=== PATIENT | female | born 1980 | race Caucasian/White ===

== ENCOUNTER 2017-02-25 17:20 | Emergency (ER) | payer MEDICAID, OTHER ==
[~2017-02-25] VITALS: Ht 165.1 cm; Wt 108.8 kg
[~2017-02-25 17:20] MED LIST: PROM25SU8 PO; RANI150 PO
[2017-02-25 17:23] VITALS: BP 126/72; PULSE 88; RESP 14; TEMP 98.5; O2SAT 98
[2017-02-25] MEDS ORDERED: SODIUM CHLOR 0.9% 1000 ML INJ 1,000 ML IV SCH (17:54)
--- NOTE | 2017-02-25 17:59 | PD ---
HPI Chief Complaint: Abdominal Pain Time Seen by Provider: 17:33 Travel History International Travel<30 days: No Contact w/Intl Traveler<30days: No Traveled to known affect area: No History of Present Illness HPI 37-year-old female here for evaluation of headache and abdominal pain. Patient reports having had a headache for the last 3 days which she describes as bandlike around her forehead, constant, no modifying factors. She has had similar headaches in the past. Today she has had right upper and right lower abdominal pain as well as right flank pain. Pain described as sharp, moderate, constant, worse with movement and palpation. The patient is felt nauseous but has not vomited. No diarrhea. She is currently on her menstrual period. History of section, umbilical hernia repair, and bilateral tubal ligation. No other abdominal surgeries. No fevers. PFSH Past Medical History Medical History: Denies Significant Hx Tetanus Vaccination: > 5 Years Influenza Vaccination: No ?: Not LMP: 02/23/17 : 4 Para: 2 Miscarriage: 2 Tubal Ligation: Yes Past Surgical History Abdominal Surgery: Yes (HERNIA) Social History Alcohol Use: Yes (Socially) Tobacco Use: No Substance Use: No Allergies-Medications (Allergen,Severity, Reaction): Coded Allergies: Aspirin (Verified Allergy, Severe, Rash, 02/25/17) Reported Meds & Prescriptions Reported Meds & Active Scripts Active No Active Prescriptions or Reported Medications Review of Systems Except as stated in HPI: all other systems reviewed are Neg Physical Exam Narrative GENERAL: Well-developed, well-nourished, comfortable, no acute distress. SKIN: Focused skin assessment warm/dry. No rash. HEAD: Atraumatic. Normocephalic. EYES: Pupils equal and round. No scleral icterus. No injection or drainage. ENT: Mucous membranes pink and moist. NECK: Trachea midline. No JVD. No nuchal rigidity. CARDIOVASCULAR: Regular rate and rhythm. RESPIRATORY: No accessory muscle use. Clear to auscultation. Breath sounds equal bilaterally. GASTROINTESTINAL: Abdomen soft, nondistended. Mild right upper and right lower quadrant tenderness without peritoneal signs. Rest of abdomen is soft and nontender. Normal bowel sounds. MUSCULOSKELETAL: No obvious deformities. No clubbing. No cyanosis. No edema. Moderate CVA tenderness. No left CVA tenderness. NEUROLOGICAL: Awake and alert. No obvious cranial nerve deficits. Motor grossly within normal limits. Normal speech. PSYCHIATRIC: Appropriate mood and affect; insight and judgment normal. Data Data Last Documented VS Vital Signs Date Time Temp Pulse Resp B/P Pulse Ox O2 Delivery O2 Flow Rate FiO2 02/25/17 19:01 97 113/49 100 Room Air 02/25/17 17:23 98.5 14 Orders Beta Hcg (Quant/Titer) (02/25/17 17:54) Complete Blood Count With Diff (02/25/17 17:54) Comprehensive Metabolic Panel (02/25/17 17:54) Lipase (02/25/17 17:54) Prothrombin Time / Inr (Pt) (02/25/17 17:54) Act Partial Throm Time (Ptt) (02/25/17 17:54) Urinalysis - C+S If Indicated (02/25/17 17:54) Ct Abd/Pel W Iv Contrast(Rout) (02/25/17 17:54) Iv Access Insert/Monitor (02/25/17 17:54) Ecg Monitoring (02/25/17 17:54) Oximetry (02/25/17 17:54) Sodium Chlor 0.9% 1000 Ml Inj (Ns 1000 M (02/25/17 17:54) Sodium Chloride 0.9% Flush (Ns Flush) (02/25/17 18:00) Ct Brain W/O Iv Contrast(Rout) (02/25/17 ) Metoclopramide Inj (Reglan Inj) (02/25/17 18:00) Ketorolac Inj (Toradol Inj) (02/25/17 18:00) Iohexol 350 Inj (Omnipaque 350 Inj) (02/25/17 19:02) Labs Laboratory Tests Test 02/25/17 02/25/17 18:00 18:10 Urine Color YELLOW Urine Turbidity CLEAR Urine pH 6.0 Urine Specific [place] 1.031 Urine Protein NEG mg/dL Urine Glucose (UA) NEG mg/dL Urine Ketones TRACE mg/dL Urine Occult Blood TRACE Urine Nitrite NEG Urine Bilirubin NEG Urine Leukocyte Esterase NEG Urine RBC 0-3 /hpf Urine WBC 0-2 /hpf Urine Squamous Epithelial 0-5 /hpf Cells Urine Mucus FEW /lpf Microscopic Urinalysis Comment CULT NOT INDICATED White Blood Count 9.8 TH/MM3 Red Blood Count 4.45 MIL/MM3 Hemoglobin 12.6 GM/DL Hematocrit 37.1 % Mean Corpuscular Volume 83.5 FL Mean Corpuscular Hemoglobin 28.3 PG Mean Corpuscular Hemoglobin 33.9 % Concent Red Cell Distribution Width 13.5 % Platelet Count 287 TH/MM3 Mean Platelet Volume 8.4 FL Neutrophils (%) (Auto) 65.9 % Lymphocytes (%) (Auto) 24.5 % Monocytes (%) (Auto) 5.5 % Eosinophils (%) (Auto) 1.7 % Basophils (%) (Auto) 2.4 % Neutrophils # (Auto) 6.5 TH/MM3 Lymphocytes # (Auto) 2.4 TH/MM3 Monocytes # (Auto) 0.5 TH/MM3 Eosinophils # (Auto) 0.2 TH/MM3 Basophils # (Auto) 0.2 TH/MM3 CBC Comment DIFF FINAL Differential Comment Prothrombin Time 10.0 SEC Prothromb Time International 0.9 RATIO Ratio Activated Partial 27.6 SEC Thromboplast Time Sodium Level 141 MEQ/L Potassium Level 3.6 MEQ/L Chloride Level 106 MEQ/L Carbon Dioxide Level 26.3 MEQ/L Anion Gap 9 MEQ/L Blood Urea Nitrogen 18 MG/DL Creatinine 0.91 MG/DL Estimat Glomerular Filtration 69 ML/MIN Rate Random Glucose 98 MG/DL Calcium Level 8.6 MG/DL Total Bilirubin 0.1 MG/DL Aspartate Amino Transf 12 U/L (AST/SGOT) Alanine Aminotransferase 18 U/L (ALT/SGPT) Alkaline Phosphatase 93 U/L Total Protein 7.4 GM/DL Albumin 3.2 GM/DL Lipase 85 U/L Human Chorionic Gonadotropin, LESS THAN 1 Quant MIU/ML MDM Medical Decision Making Medical Screen Exam Complete: Yes Emergency Medical Condition: Yes Medical Record Reviewed: Yes Differential Diagnosis Nephrolithiasis, ureterolithiasis, pyelonephritis, cholecystitis, cholelithiasis , pancreatitis, appendicitis, colitis, diverticulitis, tension headache, migraine headache, cluster headache, SAH/meningitis/encephalitis unlikely. Narrative Course Vital signs reviewed and are within normal limits. CBC is unremarkable. CMP is unremarkable. Lipase is 85. Beta hCG is less than 1. UA shows trace ketones, trace occult blood, otherwise within normal limits. The patient is currently on her menstrual period. CT head: No acute intracranial disease. CT abdomen pelvis: CONCLUSION: 1. No acute inflammatory process. 2. Right sided renal cysts. 3. Normal appendix. 4. Mildly prominent uterus. Patient was made aware of all findings. She is resting comfortably. She was given a liter of normal saline IV, IV Reglan, and IV Toradol and is had significant improvement in symptoms. She states she feels a lot better. She is stable for discharge home with outpatient follow-up with her primary care physician this week. She was informed on when to return to the emergency department. She verbalizes understanding and agreement with plan. Diagnosis Primary Impression: Abdominal pain Qualified Code: R10.9 - Abdominal pain, unspecified location Additional Impressions: Headache Qualified Code: R51 - Nonintractable headache, unspecified chronicity pattern , unspecified headache type Renal cyst Referrals: Primary Care Physician 3 days Additional Instructions: Follow-up with a primary care physician this week. Return to the emergency department for worsening symptoms or any other concerns. Scripts No Active Prescriptions or Reported Meds Disposition: 01 DISCHARGE HOME Condition: Stable Easton Moreira MD February 25, 2017 17:59
[2017-02-25] MEDS ORDERED: KETOROLAC TROMETHAMINE 30 MG/ML (IVP) VIAL IV PUSH ONE (18:00)
[2017-02-25] MEDS ORDERED: SODIUM CHLORIDE 0.9% FLUSH 10 ML FLUSH IV FLUSH PRN (18:00)
[2017-02-25] MEDS ORDERED: METOCLOPRAMIDE HCL 10 MG/2 ML VIAL IV PUSH ONE (18:00)
[2017-02-25 18:21] LABS: AUTOMATED NEUTROPHIL # 6.5 TH/MM3 (1.8-7.7); BASOPHIL # 0.2 TH/MM3 (0-0.2); BASOPHIL % 2.4 % (0.0-2.0); EOSINOPHIL # 0.2 TH/MM3 (0-0.4); EOSINOPHIL % 1.7 % (0.0-4.0); HEMATOCRIT 37.1 % (35.0-46.0); HEMO FLAGS DIFF FINAL; LYMPH % 24.5 % (9.0-44.0); LYMPHOCYTE # 2.4 TH/MM3 (1.0-4.8); MEAN CELL VOLUME 83.5 FL (80.0-100.0); MEAN CORPUSCULAR HEMOGLOBIN 28.3 PG (27.0-34.0); MEAN CORPUSCULAR HGB CONC 33.9 % (32.0-36.0); MONO % 5.5 % (0.0-8.0); NEUT % 65.9 % (16.0-70.0); PLATELET COUNT 287 TH/MM3 (150-450); RED BLOOD COUNT 4.45 MIL/MM3 (4.00-5.30); RED CELL DISTRIBUTION WIDTH 13.5 % (11.6-17.2); WHITE BLOOD COUNT 9.8 TH/MM3 (4.0-11.0)
[2017-02-25 18:22] LABS: BLOOD, URINE TRACE (NEG); GLUCOSE,URINE NEG (NEG); KETONE, URINE TRACE mg/dL (NEG); NITRITE,URINE NEG (NEG)
[2017-02-25 18:23] LABS: URINE COLOR YELLOW (YELLW/STRAW)
[2017-02-25 18:25] VITALS: O2SAT 99
[2017-02-25 18:26] LABS: COMMENT (UR) CULT NOT INDICATED; CULTURE IF INDICATED CULT NOT INDICATED; MUCUS URINE FEW /lpf (OCC); RBC, URINE 0-3 /hpf (0-3); SQUAMOUS EPITHELIAL CELL URINE 0-5 /hpf (0-5); WBC, URINE 0-2 /hpf (0-5)
[2017-02-25 18:32] LABS: CHLORIDE 106 MEQ/L (98-107); POTASSIUM 3.6 MEQ/L (3.5-5.1); SODIUM (NA) 141 MEQ/L (136-145)
[2017-02-25 18:36] LABS: ANION GAP 9 MEQ/L (5-15); BICARBONATE 26.3 MEQ/L (21.0-32.0); BLOOD UREA NITROGEN 18 MG/DL (7-18)
[2017-02-25 18:37] LABS: APTT (PATIENT) 27.6 SEC (24.3-30.1); INTERNATIONAL NORMALIZED RATIO 0.9 RATIO
[2017-02-25 18:39] LABS: ALT (GPT) 18 U/L (10-53); AST (GOT) 12 U/L (15-37); GLOMERULAR FILTRATION RATE 69 ML/MIN (>89)
[2017-02-25 18:40] LABS: TOTAL BILIRUBIN ADULT 0.1 MG/DL (0.2-1.0)
[2017-02-25 18:42] LABS: ALKALINE PHOSPHATASE 93 U/L (45-117)
[2017-02-25 18:44] LABS: BETA HCG QUANT LESS THAN 1 MIU/ML (0-5)
[2017-02-25 19:01] VITALS: BP 113/49; PULSE 97; O2SAT 100
[2017-02-25] MEDS ORDERED: IOHEXOL 350 MG/ML 10 ML VIAL (for RAD DIAG) IV ONE (19:02)
--- NOTE | 2017-02-25 19:18 | RADHPO ---
EXAM DATE/TIME: 02/25/2017 18:39 [facility] COMPARISON: No previous studies available for comparison. INDICATIONS : Cephalgia. RADIATION DOSE: 59.86 CTDIvol (mGy) MEDICAL HISTORY : None SURGICAL HISTORY : None. ENCOUNTER: Initial ACUITY: 3 days PAIN SCALE: 8/10 LOCATION: Bilateral cranial TECHNIQUE: Multiple contiguous axial images were obtained of the head. Using automated exposure control and adj ustment of the mA and/or kV according to patient size, radiation dose was kept as low as reasonably a chievable to obtain optimal diagnostic quality images. FINDINGS: CEREBRUM: The ventricles are normal for age. No evidence of midline shift, mass lesion, hemorrhage or acute in farction. No extra-axial fluid collections are seen. POSTERIOR FOSSA: The cerebellum and brainstem are intact. The 4th ventricle is midline. The cerebellopontine angle i s unremarkable. EXTRACRANIAL: The visualized portion of the orbits is intact. SKULL: The calvaria is intact. No evidence of skull fracture. CONCLUSION: No acute intracranial disease. Keaton Elias MD on February 25, 2017 at 19:15 Board Certified Radiologist. This report was verified electronically.
--- NOTE | 2017-02-25 19:19 | RADHPO ---
EXAM DATE/TIME: 02/25/2017 18:44 [facility] COMPARISON: No previous studies available for comparison. INDICATIONS : Right abdominal pain. IV CONTRAST: 100 cc Omnipaque 350 (iohexol) IV ORAL CONTRAST: No oral contrast ingested. RADIATION DOSE: 21.17 CTDIvol (mGy) MEDICAL HISTORY : None SURGICAL HISTORY : Tubal ligation. Umbilical hernia repair. section. ENCOUNTER: Initial ACUITY: 3 days PAIN SCALE: 8/10 LOCATION: Right flank TECHNIQUE: Volumetric scanning of the abdomen and pelvis was performed. Using automated exposure control and ad justment of the mA and/or kV according to patient size, radiation dose was kept as low as reasonably achievable to obtain optimal diagnostic quality images. FINDINGS: LOWER LUNGS: The visualized lower lungs are clear. LIVER: Homogeneous density without lesion. There is no dilation of the biliary tree. No calcified gallston es. SPLEEN: Normal size without lesion. PANCREAS: Within normal limits. KIDNEYS: Normal in size and shape. There is no mass, stone or hydronephrosis. Right renal cyst. ADRENAL GLANDS: Within normal limits. VASCULAR: There is no aortic aneurysm. BOWEL/MESENTERY: The stomach, small bowel, and colon demonstrate no acute abnormality. There is no free intraperitone al air or fluid. Normal appendix. ABDOMINAL WALL: Within normal limits. RETROPERITONEUM: There is no lymphadenopathy. BLADDER: No wall thickening or mass. REPRODUCTIVE: Prominent uterus. INGUINAL: There is no lymphadenopathy or hernia. MUSCULOSKELETAL: Within normal limits for patient age. CONCLUSION: 1. No acute inflammatory process. 2. Right sided renal cysts. 3. Normal appendix. 4. Mildly prominent uterus. Keaton Elias MD on February 25, 2017 at 19:15 Board Certified Radiologist. This report was verified electronically.
== END 2017-02-25 19:52 | disposition home or self-care (01) ==
LOC: PHED 17:20
DX: R10.9 Unspecified abdominal pain (principal); R51 Headache; N28.1 Cyst of kidney, acquired
CPT/HCPCS: 70450; 74177; 80053; 81001; 83690; 84702; 85025; 85610; 85730; 96361; 96374; 96375; 99284; J1885; J2765; J7030; Q9967

== ENCOUNTER 2017-08-19 10:30 | Emergency (ER) | payer OTHER ==
[~2017-08-19] VITALS: Ht 167.6 cm; Wt 109.6 kg
[2017-08-19 10:52] VITALS: BP 134/74; PULSE 84; RESP 16; TEMP 98.1; O2SAT 97
[2017-08-19 12:00] VITALS: BP 147/74; PULSE 82; O2SAT 97
--- NOTE | 2017-08-19 12:25 | PD ---
HPI Chief Complaint: Headache Time Seen by Provider: 11:14 Travel History International Travel<30 days: No Contact w/Intl Traveler<30days: No Traveled to known affect area: No History of Present Illness HPI This is a 37 year old female who presents to the emergency department with one week of a headache, sharp, 10/10, constant, and bilateral, associated with dizziness, nausea, vomiting, and pain in her hands. Pt. reports she has a history of headaches, but this is worse than normal and she has more dizziness and vomiting than usual. Pt. reports she vomited 5 times yesterday. Pt. acknowledges photophobia, and she says the headache gets worse with stress. Pt. has tried tylenol but it is not helping. PFSH Past Medical History Medical History: Denies Significant Hx Tetanus Vaccination: Unknown Influenza Vaccination: No ?: Not : 4 Para: 2 Miscarriage: 2 Tubal Ligation: Yes Past Surgical History Abdominal Surgery: Yes (HERNIA) Social History Alcohol Use: Yes (Socially) Tobacco Use: No Substance Use: No Allergies-Medications (Allergen,Severity, Reaction): Coded Allergies: aspirin (Unverified Allergy, Severe, Rash, 08/19/17) Reported Meds & Prescriptions Reported Meds & Active Scripts Active No Active Prescriptions or Reported Medications Review of Systems Except as stated in HPI: all other systems reviewed are Neg Physical Exam Narrative GENERAL:Well appearing, no acute distress SKIN: Focused skin assessment warm and dry. HEAD: Atraumatic. Normocephalic. EYES: Pupils equal and round. No injection or drainage. ENT: Moist mucous membranes NECK: Trachea midline. CARDIOVASCULAR: Regular rate and rhythm. No murmur appreciated. RESPIRATORY: Clear to auscultation. Breath sounds equal bilaterally. GASTROINTESTINAL: Abdomen soft, non-tender, nondistended. MUSCULOSKELETAL: No obvious deformities. NEUROLOGICAL: Awake and alert. No obvious cranial nerve deficits. No dysarthria or aphasia. No upper or lower extremity drift. No upper extremity ataxia. Visual reich intact. PSYCHIATRIC: Appropriate mood and affect; insight and judgment normal. Data Data Last Documented VS Vital Signs Date Time Temp Pulse Resp B/P (MAP) Pulse Ox O2 Delivery O2 Flow Rate FiO2 08/19/17 10:52 98.1 84 16 134/74 (94) 97 Orders Orders Ketorolac Inj (Toradol Inj) (08/19/17 12:30) Prochlorperazine Inj (Compazine Inj) (08/19/17 12:30) Diphenhydramine Inj (Benadryl Inj) (08/19/17 12:30) Sodium Chlor 0.9% 1000 Ml Inj (Ns 1000 M (08/19/17 12:30) MDM Medical Decision Making Medical Screen Exam Complete: Yes Emergency Medical Condition: Yes Interpretation(s) afebrile, no tachycardia, normotensive Differential Diagnosis Migraine, tension headache, subarachnoid hemorrhage, tumor Narrative Course This is a 37-year-old female who presents to the emergency department having had headaches in the past with a headache that's been going on for 1 week. Her headache is similar to her prior headaches but more persistent and she's had more vomiting. Her headache was gradual in onset and I don't suspect subarachnoid hemorrhage. She has a normal neurologic exam. She was given Toradol, Compazine and Benadryl as well as IV fluids and she feels much better. She had CT imaging in February of this year in the setting of headache. I don't think any further imaging is warranted. She will be discharged with sumatriptan and naproxen and was told to follow-up with a primary care physician. Diagnosis Primary Impression: Migraine Qualified Codes: G43.009 - Migraine without aura, not intractable, without status migrainosus Patient Instructions: General Instructions Med/Other Pt SpecificInfo: Prescription(s) given Scripts Naproxen (Naproxen) 500 Mg Tab 500 MG PO BID Y for HEADACHE, #20 TAB 0 Refills Prov: Desiree Singleton MD 08/19/17 Sumatriptan (Sumatriptan) 50 Mg Tab 50 MG PO ONCE Y for MIGRAINE HEADACHE, #15 TAB 0 Refills If a satisfactory response has not been obtained at 2 hours, a second dose may be administered Prov: Desiree Singleton MD 08/19/17 Disposition: 01 DISCHARGE HOME Condition: Stable Desiree Singleton MD Aug 19, 2017 12:25
[2017-08-19] MEDS ORDERED: PROCHLORPERAZINE INJ 10 MG/2 ML VIAL IV PUSH ONE (12:30)
[2017-08-19] MEDS ORDERED: diphenhydrAMINE HCL 50 MG/ML VIAL IV PUSH ONE (12:30)
[2017-08-19] MEDS ORDERED: KETOROLAC TROMETHAMINE 30 MG/ML (IVP) VIAL IV PUSH ONE (12:30)
[2017-08-19] MEDS ORDERED: SODIUM CHLOR 0.9% 1000 ML INJ 1,000 ML IV ONE (12:30)
[2017-08-19 13:10] VITALS: BP 142/76; PULSE 77; RESP 16; O2SAT 97
[2017-08-19] MEDS ORDERED: SUMA50TA2 PO (13:40)
[2017-08-19] MEDS ORDERED: NAPR500T2 PO (13:40)
[2017-08-19 13:49] VITALS: BP 128/66; RESP 16
== END 2017-08-19 14:10 | disposition home or self-care (01) ==
LOC: PHED 10:30
DX: G43.009 Migraine without aura, not intractable, without status migrainosus (principal)
CPT/HCPCS: 96361; 96374; 96375; 99284; J0780; J1200; J1885; J7030